=== PATIENT | female | born 1950 | race Two or more races ===

== ENCOUNTER → 2019-08-31 | Outpatient (CLI) | payer MEDICARE, BC ==
[~2019-08-31] VITALS: Ht 162.6 cm; Wt 53.5 kg
== END | disposition home or self-care (01) ==
LOC: Rad HDHVI 12:53
PROVIDERS: ATTEND Internal Medicine Cardiovascular Disease
DX: E11.9 Type 2 diabetes mellitus without complications (principal); I10 Essential (primary) hypertension; E78.5 Hyperlipidemia, unspecified; E78.00 Pure hypercholesterolemia, unspecified
CPT/HCPCS: 78452; 93017; 96374; A9500

== ENCOUNTER → 2019-09-13 | Outpatient (CLI) | payer MEDICARE, BC | END | disposition home or self-care (01) | LOC: Rad HDHVI 10:50 | PROVIDERS: ATTEND Internal Medicine Cardiovascular Disease | DX: I08.1 Rheumatic disorders of both mitral and tricuspid valves (principal); R07.9 Chest pain, unspecified; R00.2 Palpitations | CPT/HCPCS: 93306 ==

== ENCOUNTER 2020-04-03 23:36 | Inpatient (IN) | payer MEDICARE, BC ==
[~2020-04-03] VITALS: Ht 157.5 cm; Wt 57.8 kg
[2020-04-03 23:50] VITALS: BP 118/74
--- NOTE | 2020-04-03 23:50 | NUR ---
Direct Admit from [facility] MAURO DHILLON admitted to Telemetry unit after SBAR received from CLYDE Waller from [facility]. Patient oriented to STAN MAK, RN primary RN, unit, room, bed, and unit policies regarding patient care and visiting hours. Patient was placed on continuous telemetry monitoring, tele box #64 and telemetry reading is SR77 . Patient placed on bedside oxygen, weighed by bedscale and encouraged to call if they need something. All questions and concerns addressed, patient verbalized understanding.
--- NOTE | 2020-04-03 23:55 | NUR ---
Dr. Diallo Telephone orders See EMAR for orders.
[2020-04-04] MEDS ORDERED: CLOPIDOGREL BISULFATE 75 MG TAB PO ONE
[2020-04-04] MEDS ORDERED: NITROGLYCERIN 0.4 MG SL TAB SL PRN ×2 (00:45)
[2020-04-04] MEDS ORDERED: MORPHINE SULF INJ 2 MG/ML SYRINGE 1ML IV PRN (00:45)
[2020-04-04] MEDS: SODIUM CHLORIDE 0.9% 1,000 ML IV SCH ×2 (01:16→14:35)
[2020-04-04 01:33] LABS: Basophils # (auto) 0 10 ^3/uL (0-0.2); Basophils % (auto) 0.3 % (0.0-2.0); Eosinophils # (auto) 0 10 ^3/uL (0-0.8); Eosinophils % (auto) 0.3 % (0.0-7.0); Hematocrit 44.9 % (36.0-46.0); Hemoglobin 15.2 g/dL (12.2-16.2); Lymphocytes % (auto) 39.5 % (10.0-50.0); Mean Corpuscular Hemoglobin 30.1 pg (28.0-32.0); Mean Corpuscular Hgb Conc. 33.9 g/dL (32.0-36.0); Mean Corpuscular Volume 88.8 fL (80.0-100.0); Monocytes # (auto) 0.7 10 ^3/uL (0-1.3); Monocytes % (auto) 6.9 % (0.0-12.0); Neutrophils # (auto) 5.4 10 ^3/uL (1.6-8.6); Nucleated Red Blood Cells % 0.8 %; Platelet Count (auto) 245 10^3/uL (140-450); Red Blood Cells 5.06 10^6/uL (4.0-5.20); Red Cell Distribution Width 13.1 % (11.8-14.3); White Blood Cell 10.1 10^3/uL (4.4-10.8)
[2020-04-04 01:55] LABS: BUN/Creatinine Ratio 23.4; Calcium 9.5 mg/dL (8.5-10.1); Potassium 4.4 mmol/L (3.5-5.1)
[2020-04-04 01:58] LABS: Bilirubin, Total 0.7 mg/dL (0.2-1.0)
[2020-04-04 02:05] LABS: INR 1.02 (0.9-1.15); Partial Thromboplastin Time 27.9 sec (23.64-32.05)
[2020-04-04 02:28] LABS: Urine Bacteria FEW /hpf (None Seen); Urine Blood Negative /uL (Negative); Urine Specific Gravity 1.014 (1.001-1.035); Urine WBC 6 /hpf (0 - 5)
[2020-04-04] MEDS ORDERED: METF-370 PO (02:59)
[2020-04-04] MEDS ORDERED: CLOP75TA28 PO (02:59)
[2020-04-04 05:00] VITALS: BP 108/69
[2020-04-04] MEDS: SODIUM CHLOR 0.9% PF (SALINE LOCK) 10ML VIAL/SYR IV SCH ×3 (05:48→22:19)
--- NOTE | 2020-04-04 07:15 | NUR ---
CLOSING NOTE PATIENT STATUS HAS NOT CHANGE. ENDORSED CARE TO DAYSHIFT NURSE.
[2020-04-04] MEDS ORDERED: IOHEXOL 350 MG/ML 100ML IJ ONE ×2 (07:19→11:30)
[2020-04-04 09:00] VITALS: BP 104/60
--- NOTE | 2020-04-04 09:24 | NUR ---
patient taken down to calibration laboratory technician
[2020-04-04] MEDS ORDERED: CLOPIDOGREL BISULFATE 75 MG TAB PO SCH (10:00)
[2020-04-04] MEDS ORDERED: LIDOCAINE 2%HCL (LOCAL ANESTH.) INJ 20ML MDV ONE (11:30)
[2020-04-04] MEDS ORDERED: fentaNYL CITRATE 100 MCG/2 ML VL ONE (11:41)
[2020-04-04] MEDS ORDERED: MIDAZOLAM HCL 1MG/1ML-2 ML VIAL ONE (11:41)
[2020-04-04] MEDS ORDERED: HEPARIN SODIUM (PORCINE) 5000 UNITS/ML 1ML VIAL ONE (12:23)
[2020-04-04] MEDS: ASPirin 81 mg TAB PO SCH (12:30)
[2020-04-04] MEDS ORDERED: ASPirin 81 mg TAB ONE (12:32)
[2020-04-04] MEDS ORDERED: DEXTROSE (50%) 50ML SYRG IV PRN (13:00)
[2020-04-04] MEDS ORDERED: ACETAMINOPHEN 500 MG TAB PO PRN (13:15)
[2020-04-04] MEDS: HYDROcodone-ACET 5/325MG TAB PO PRN (13:38)
[2020-04-04 13:57] LABS: Basophils # (auto) 0 10 ^3/uL (0-0.2); Basophils % (auto) 0.3 % (0.0-2.0); Eosinophils # (auto) 0.1 10 ^3/uL (0-0.8); Hematocrit 41.4 % (36.0-46.0); Hemoglobin 13.9 g/dL (12.2-16.2); Lymphocytes # (auto) 2.1 10 ^3/uL (0.4-5.4); Lymphocytes % (auto) 31.2 % (10.0-50.0); Mean Corpuscular Hgb Conc. 33.6 g/dL (32.0-36.0); Mean Corpuscular Volume 89.4 fL (80.0-100.0); Monocytes # (auto) 0.5 10 ^3/uL (0-1.3); Monocytes % (auto) 7.3 % (0.0-12.0); Neutrophils % (auto) 60.2 % (37.0-80.0); Nucleated Red Blood Cells % 0.1 %; Platelet Count (auto) 190 10^3/uL (140-450); Red Blood Cells 4.62 10^6/uL (4.0-5.20); White Blood Cell 6.6 10^3/uL (4.4-10.8)
--- NOTE | 2020-04-04 14:20 | NUR ---
RESP UNABLE TO PERFORM BED SIDE SPIROMETRY DUE TO PT NOT BEING AWAKE ENOUGH TO FOLLOW INSTRUCTIONS FOR TEST.
[2020-04-04 14:29] LABS: INR 1.13 (0.9-1.15)
--- NOTE | 2020-04-04 14:33 | NUR ---
paged dr hawkins for clarification on heparin drip, art wants to know if he wants them to use the heparin protocol here. Also need to know if dr hawkins is ok with bedside spirometry instead of PFT.
--- NOTE | 2020-04-04 14:35 | NUR ---
called pharmacy for heparin drip, they will send.
[2020-04-04 14:39] LABS: Partial Thromboplastin Time 106.5 sec (23.64-32.05)
--- NOTE | 2020-04-04 14:50 | NUR ---
received PTT critical on patient, awaiting dr to call back before initiating Heparin.
--- NOTE | 2020-04-04 14:58 | NUR ---
per shruthi titrate per heparin protocol
--- NOTE | 2020-04-04 15:00 | NUR ---
per pharmacy ok to start heparin drip a 8ml/hr
--- NOTE | 2020-04-04 15:13 | NUR ---
PER PHARMACY RE-DRAW PTT STAT NOW AND THEN START HEPARIN DRIP AT 8ML/HR
[2020-04-04] MEDS: PANTOPRAZOLE 40 MG/10 ML VIAL INJ IV SCH (15:16)
[2020-04-04] MEDS: HEPARIN DRIP/D5W 100UNITS/ML 250 ML IV SCH (15:51)
[2020-04-04 15:59] LABS: INR 1.07 (0.9-1.15); Partial Thromboplastin Time 40.6 sec (23.64-32.05)
[2020-04-04] MEDS: InsuLIN REG 1unit/0.01ml Soln (100units/ml) SC SCH ×2 (16:49→22:00)
[2020-04-04] MEDS: ACCU-CHEK COMFORT CURVE STRIP VI SCH ×2 (16:50→22:19)
[2020-04-04 17:00] VITALS: BP 130/70
--- NOTE | 2020-04-04 18:12 | NUR ---
Patient sat up in bed, the Cath site in Right groin has gauze that is minimally saturated. I told patient that she should not attempt to walk quite yet because she is on the heparin drip and the groin site took a while to clot. Patient was put on a bed owen to attempt to urinate.
--- NOTE | 2020-04-04 19:08 | NUR ---
Patient complaining of pain. Patient requesting to transfer to [facility]. Patient medicated for pain. Will continue to monitor.
[2020-04-04] MEDS: MORPHINE SULF INJ 2 MG/ML SYRINGE 1ML IV PRN (19:10)
--- NOTE | 2020-04-04 20:00 | NUR ---
Patient's called requesting information. No password on the account. Family wanting to know how can the patient transfer to [facility]. I explained the physician needs to request the transfer so that another physician can accept the case. I also explained if the patient leaves AMA there is a risk to leaving the hospital against medical advice. I informed the that the cardiothoracic surgeon has been consulted and she has yet to be seen. verbalized understanding. Will continue to monitor.
--- NOTE | 2020-04-04 20:12 | NUR ---
Spoke to the patient to reiterate that she is under a physicians care and currently receiving Heparin post heart cath. She then paused our discussion and called her sister. They added the password "Nurse" to the account. Explained to the family that the physician has placed a consult for the cardiothoracic surgeon and she has yet to be seen. I explained the risk of leaving AMA, and that she should remain and make her wishes known to the physician. Paged the physician for medication for anxiety, and acid reflux. Awaiting orders.
[2020-04-04] MEDS ORDERED: ALPRAZolam 0.25 MG TAB PO PRN (21:15)
[2020-04-04 22:00] VITALS: BP 131/82
[2020-04-04 22:23] LABS: Basophils # (auto) 0 10 ^3/uL (0-0.2); Basophils % (auto) 0.2 % (0.0-2.0); Eosinophils # (auto) 0 10 ^3/uL (0-0.8); Eosinophils % (auto) 0.3 % (0.0-7.0); Hematocrit 41.2 % (36.0-46.0); Hemoglobin 14.1 g/dL (12.2-16.2); Lymphocytes # (auto) 1.6 10 ^3/uL (0.4-5.4); Lymphocytes % (auto) 18.4 % (10.0-50.0); Mean Corpuscular Hemoglobin 30.5 pg (28.0-32.0); Mean Corpuscular Hgb Conc. 34.2 g/dL (32.0-36.0); Monocytes # (auto) 0.6 10 ^3/uL (0-1.3); Monocytes % (auto) 6.8 % (0.0-12.0); Neutrophils # (auto) 6.3 10 ^3/uL (1.6-8.6); Neutrophils % (auto) 74.3 % (37.0-80.0); Platelet Count (auto) 199 10^3/uL (140-450); Red Blood Cells 4.63 10^6/uL (4.0-5.20); Red Cell Distribution Width 13.1 % (11.8-14.3); White Blood Cell 8.5 10^3/uL (4.4-10.8)
[2020-04-04] MEDS: ALUM & MAG HYDROX-SIMETH LIQ(MAALOX) 30 ML PO PRN ×2 (22:26→22:33)
[2020-04-04 22:56] LABS: INR 1.08 (0.9-1.15); Partial Thromboplastin Time 40.9 sec (23.64-32.05)
--- NOTE | 2020-04-04 23:15 | NUR ---
Patient aPTT 40.9, Heparin increased by 2 mL/hr rate now 10 mL/hr. Next draw will be at 0515. Will continue to monitor.
[2020-04-05] MEDS: MORPHINE SULF INJ 2 MG/ML SYRINGE 1ML IV PRN ×2 (00:28→03:25)
--- NOTE | 2020-04-05 00:35 | NUR ---
Patient complained of CP 7/10, non-radiating. EKG performed, patient placed on 1L NC, and morphine provided. Patient currently resting in bed with eyes closed free of distress. Will continue to monitor.
[2020-04-05] MEDS: SODIUM CHLORIDE 0.9% 1,000 ML IV SCH ×3 (02:55→21:28)
--- NOTE | 2020-04-05 04:53 | NUR ---
PATIENT UP TO BATHROOM, PATIENT EXCLAIMED SHE HEARD A POP IN HER RIGHT GROIN. PATIENT HAS A SMALL HEMATOMA WITH A SMALL TRICKLE BLEED. PRESSURE APPLIED TO SITE TO STOP BLEEDING. PAGING DR. GUARDADO. AWAITING ORDERS.
[2020-04-05 05:00] VITALS: BP 141/90
--- NOTE | 2020-04-05 05:22 | NUR ---
PAGED DR. GUARDADO AGAIN REQUESTING TO DISCONTINUE HEPARIN DRIP. AWAITING ORDERS.
[2020-04-05] MEDS: SODIUM CHLOR 0.9% PF (SALINE LOCK) 10ML VIAL/SYR IV SCH ×4 (06:06→23:48)
[2020-04-05] MEDS: ALUM & MAG HYDROX-SIMETH LIQ(MAALOX) 30 ML PO PRN ×2 (06:06→17:31)
[2020-04-05 06:13] LABS: Basophils # (auto) 0 10 ^3/uL (0-0.2); Basophils % (auto) 0.2 % (0.0-2.0); Eosinophils # (auto) 0 10 ^3/uL (0-0.8); Eosinophils % (auto) 0.1 % (0.0-7.0); Hematocrit 41.9 % (36.0-46.0); Lymphocytes # (auto) 3.3 10 ^3/uL (0.4-5.4); Lymphocytes % (auto) 30.6 % (10.0-50.0); Mean Corpuscular Hemoglobin 30.1 pg (28.0-32.0); Mean Corpuscular Hgb Conc. 33.4 g/dL (32.0-36.0); Mean Corpuscular Volume 90.1 fL (80.0-100.0); Monocytes # (auto) 0.8 10 ^3/uL (0-1.3); Monocytes % (auto) 7.3 % (0.0-12.0); Neutrophils # (auto) 6.6 10 ^3/uL (1.6-8.6); Neutrophils % (auto) 61.8 % (37.0-80.0); Nucleated Red Blood Cells % 0.1 %; Platelet Count (auto) 203 10^3/uL (140-450); Red Blood Cells 4.65 10^6/uL (4.0-5.20); Red Cell Distribution Width 12.7 % (11.8-14.3); White Blood Cell 10.7 10^3/uL (4.4-10.8)
--- NOTE | 2020-04-05 06:38 | NUR ---
REPAGED DR. GUARDADO AWAITING ORDERS.
[2020-04-05 06:40] LABS: Calcium 8.4 mg/dL (8.5-10.1); Potassium 3.4 mmol/L (3.5-5.1)
[2020-04-05 06:42] LABS: BUN/Creatinine Ratio 14.5
--- NOTE | 2020-04-05 06:47 | NUR ---
MULTIPLE ATTEMPTS TO PAGE PRIMARY PHYSICIAN, PAGES UNANSWERED PAGING HOSPITALIST FOR ORDERS.
[2020-04-05] MEDS: ACCU-CHEK COMFORT CURVE STRIP VI SCH ×4 (06:58→21:27)
[2020-04-05] MEDS: InsuLIN REG 1unit/0.01ml Soln (100units/ml) SC SCH ×4 (07:00→21:40)
--- NOTE | 2020-04-05 07:00 | NUR ---
Opening Shift Note Received report on the patient. Awake lying in bed. Patient shows no signs of distress at this time. Discussed the plan of care with the patient. Bed in lowest position, side rails up x2, and the call light is within reach.
--- NOTE | 2020-04-05 07:47 | NUR ---
Endorsed care to Brittany TANG, examined Right groin. Right groin no longer bleeding. Awaiting orders.
--- NOTE | 2020-04-05 08:16 | NUR ---
Paged Dr Diallo regarding bleeding at the right groin. Awaiting a call back.
--- NOTE | 2020-04-05 08:54 | NUR ---
0714 04/05/20 - Contacted by Dr Fernández's nurse Estela, who request clinicals and face sheet on patient. Estela stated if bed becomes available today, she will transfer patient to [place]. I faxed to Estela at [phone] requested documents.
[2020-04-05 09:00] VITALS: BP 138/78
[2020-04-05] MEDS: ASPirin 81 mg TAB PO SCH (09:47)
[2020-04-05] MEDS: PANTOPRAZOLE 40 MG/10 ML VIAL INJ IV SCH (09:47)
[2020-04-05] MEDS: AMIODARONE HCL 200 MG TAB PO SCH (09:48)
[2020-04-05] MEDS: NITROGLYCERIN 0.2MG/HR TOPICAL PATCH TD SCH (09:48)
--- NOTE | 2020-04-05 09:51 | NUR ---
Reassessed temp. Now 99.5
--- NOTE | 2020-04-05 09:51 | NUR ---
Spoke to Dr Diallo. New orders received.
--- NOTE | 2020-04-05 09:52 | NUR ---
Called pharmacy and let them know the heparin has been stopped.
[2020-04-05 11:30] LABS: INR 1.04 (0.9-1.15); Partial Thromboplastin Time 25.6 sec (23.64-32.05)
[2020-04-05] MEDS: HEPARIN DRIP/D5W 100UNITS/ML 250 ML IV SCH (12:52)
[2020-04-05 13:00] VITALS: BP 107/59
--- NOTE | 2020-04-05 15:47 | NUR ---
1547 04/05/20 - Contacted by [facility] transfer center, patient has been accepted and assigned bed 222-A main tele unit, nurse's station [phone]. Address is [address] [place], [place] [id number]. Please send CD angiogram with patient. Will place patient on [facility] will call.
--- NOTE | 2020-04-05 15:55 | NUR ---
1555 04/05/20 - Attending receiving patient is Dr Sara Zayas
--- NOTE | 2020-04-05 15:59 | NUR ---
Received a call that the patient is being transferred to [place] for cardiothoracic with Dr. Fernández. Paged Dr. Diallo for discharge orders and to advise if the patient and her family have been notified.
--- NOTE | 2020-04-05 16:13 | NUR ---
Dr Diallo called and spoke to the patient about the transfer. Patient states that is not sure if she wants to be transferred to [place] and may want to go to [facility] instead. Dr Diallo informed the patient that it would take a week to be transferred to [facility]. Patient is going to call her family and let me know her decision.
--- NOTE | 2020-04-05 16:17 | NUR ---
Tried to call Jose and put [facility] on will call, but there was no answer and voicemail is full. Addendum: 04/05/20 at 1620 by DANYELL RODRIGUEZ RN RN Mariangel veras
[2020-04-05 17:00] VITALS: BP 123/78
--- NOTE | 2020-04-05 17:05 | NUR ---
[facility] called needed the medicare form and the correct Medicare #. Put transport on will call because the patient is not decided on location.
--- NOTE | 2020-04-05 17:07 | NUR ---
Patient stated she wants to go to [facility]. Dr iDallo informed.
--- NOTE | 2020-04-05 17:39 | NUR ---
Received a call from [facility] transfer [facility]. The accepting physician is Dr. Avel Domínguez. Transfer center phone number is . Fax # is . Faxed over the face sheet, H&P, and the last progress note. Rep said she will work on the transfer on Wednesday.
--- NOTE | 2020-04-05 19:15 | NUR ---
Endorsed care to Yamile. Patient shows no signs of distress at this time.
--- NOTE | 2020-04-05 19:30 | NUR ---
Opening Shift Note Assumed care of patient, awake and alert/oriented x4. No S/S of distress/SOB or pain. Bed in lowest locked position, safety precautions in place, call light within reach. Instructed on POC and to call for assist PRN, will continue to monitor for changes Q1hr and PRN.
[2020-04-05 22:00] VITALS: BP 104/62
[2020-04-06] MEDS: InsuLIN REG 1unit/0.01ml Soln (100units/ml) SC SCH ×4 (06:06→22:02)
[2020-04-06] MEDS: ACCU-CHEK COMFORT CURVE STRIP VI SCH ×4 (06:06→21:56)
[2020-04-06] MEDS: ALUM & MAG HYDROX-SIMETH LIQ(MAALOX) 30 ML PO PRN ×2 (07:14→20:39)
--- NOTE | 2020-04-06 07:19 | NUR ---
END OF SHIFT PT. RESTING IN BED. NO S/S DISTRESS AT THIS TIME. PT. REPORTS HEARTBURN. MILK AND MAYLOX GIVEN PRIOR TO LEAVING. PT. STATES SHE IS FEELING COMFORTABLE. CARE ENDORSED TO DAY RN.
--- NOTE | 2020-04-06 07:30 | NUR ---
RECEIVED REPORT FROM NIGHT NURSE. PATIENT RESTING IN BED, STATES THAT SHE FEELS LIKE SHE HAS INDIGESTION/ HEART BURN. WILL CONTINUE TO MONITOR.
[2020-04-06] MEDS: MORPHINE SULF INJ 2 MG/ML SYRINGE 1ML IV PRN (08:10)
--- NOTE | 2020-04-06 08:10 | NUR ---
CHEST PAIN/ ABD PAIN PATIENT STETS THAT SHE IS HAVING CHEST PAIN, LOWER RIGHT ABDOMINAL PAIN. PATIENT STATES THAT MORPHINE HELPS AND THAT THE MAALOX DID NOT HELP MUCH. MORPHINE GIVEN. WILL CONTINUE TO MONITOR.
[2020-04-06 09:00] VITALS: BP 133/79
[2020-04-06] MEDS: PANTOPRAZOLE 40 MG/10 ML VIAL INJ IV SCH (09:37)
[2020-04-06] MEDS: AMIODARONE HCL 200 MG TAB PO SCH (09:38)
[2020-04-06] MEDS: ASPirin 81 mg TAB PO SCH (09:38)
[2020-04-06] MEDS: NITROGLYCERIN 0.2MG/HR TOPICAL PATCH TD SCH (09:38)
--- NOTE | 2020-04-06 09:39 | NUR ---
CHEST PAIN/ ABD PAIN EKG TAKEN. VITALS STABLE BP 129/89, HR 93, O2 100% ON 2 L, RR 18. NITRO SUBLINGUAL GIVEN, SCHEDULED MORNING MEDICATIONS GIVEN. WILL CONTINUE TO MONITOR.
--- NOTE | 2020-04-06 10:10 | NUR ---
CHEST PAIN/ ABD PAIN PATIENT STATES SHE IS FEELING MUCH BETTER AND WANTS TO WALK AROUND FOR A WHILE. WILL CONTINUE TO MONITOR.
[2020-04-06] MEDS: HEPARIN DRIP/D5W 100UNITS/ML 250 ML IV SCH (12:52)
[2020-04-06 13:00] VITALS: BP 119/68
[2020-04-06] MEDS: HYDROcodone-ACET 5/325MG TAB PO PRN ×2 (15:38→20:40)
[2020-04-06] MEDS: SODIUM CHLOR 0.9% PF (SALINE LOCK) 10ML VIAL/SYR IV SCH ×2 (15:38→21:56)
[2020-04-06 17:10] VITALS: BP 117/77
[2020-04-06] MEDS: SODIUM CHLORIDE 0.9% 1,000 ML IV SCH (17:45)
--- NOTE | 2020-04-06 19:20 | NUR ---
Opening Shift Note Assumed care of patient. Patient is awake, alert, and oriented X 4. No S/S of respiratory distress noted or reported. Patient reports RL abd and upper back pain 6 out 0f 10. Pain will be addressed per dr's order. 2 LPM NC. Patient safety measures in place bed in lowest position, brakes are locked, side rails up x 2, and call light within reach. Patent instructed on POC and to call for assistance as needed. Will continue to monitor for changes Q1hr and PRN.
[2020-04-06 20:00] VITALS: BP 119/74
--- NOTE | 2020-04-06 20:36 | NUR ---
Pain Patient complaints on right middle abdominal pain and pain just below her right shoulder blade. Pain medication given and and hot packs offered. Will continue to monitor.
--- NOTE | 2020-04-06 21:00 | NUR ---
Received a call from [facility]. The publications sales representative Minip checked on Pt's status and confirmed that a bed will be possibly available on Wednesday.
[2020-04-06 22:00] VITALS: BP 119/74
[2020-04-07 05:00] VITALS: BP 115/78
[2020-04-07] MEDS: SODIUM CHLOR 0.9% PF (SALINE LOCK) 10ML VIAL/SYR IV SCH ×3 (05:40→22:54)
[2020-04-07] MEDS: ACCU-CHEK COMFORT CURVE STRIP VI SCH ×4 (06:26→21:50)
[2020-04-07] MEDS: InsuLIN REG 1unit/0.01ml Soln (100units/ml) SC SCH ×4 (06:30→21:55)
[2020-04-07] MEDS: ONDANSETRON HCL 4 MG/2 ML VIAL IV PRN ×2 (06:57→23:31)
--- NOTE | 2020-04-07 07:30 | NUR ---
RECEIVED REPORT FROM NIGHT NURSE. PATIENT RESTING IN BED, NO DISTRESS NOTED. WILL CONTINUE TO MONITOR.
[2020-04-07] MEDS: SODIUM CHLORIDE 0.9% 1,000 ML IV SCH ×2 (08:25→21:33)
[2020-04-07] MEDS: HYDROcodone-ACET 5/325MG TAB PO PRN ×3 (08:25→22:07)
[2020-04-07 09:00] VITALS: BP_SYST 115; BP_SYST 125; BP_DIAS 74; BP_DIAS 84
[2020-04-07] MEDS: PANTOPRAZOLE 40 MG/10 ML VIAL INJ IV SCH (09:40)
[2020-04-07] MEDS: NITROGLYCERIN 0.2MG/HR TOPICAL PATCH TD SCH (09:40)
[2020-04-07] MEDS: AMIODARONE HCL 200 MG TAB PO SCH (09:41)
[2020-04-07] MEDS: ASPirin 81 mg TAB PO SCH (09:41)
[2020-04-07] MEDS: HEPARIN DRIP/D5W 100UNITS/ML 250 ML IV SCH (11:46)
[2020-04-07 13:00] VITALS: BP 95/59
--- NOTE | 2020-04-07 14:59 | NUR ---
Nutrition Assessment Notes please see attached link for complete assessment [employer] needs BW 56 [id number] kcals (25-30 kcal/kgBW), Est Protein needs: 56-67 gms/day (1.0-1.2 gm/kgBW). Will continue to monitor and reassess prn. Addendum: 04/07/20 at [address] Amended: Links added.
[2020-04-07 17:00] VITALS: BP 96/63
--- NOTE | 2020-04-07 19:13 | NUR ---
Opening Shift Note Assumed care of patient. Patient is awake, alert, and oriented X 4. No S/S of respiratory distress, no pain noted or reported. 2 LPM NC. Patient safety measures in place bed in lowest position, brakes are locked, side rails up x 2, and call light within reach. Patent instructed on POC and to call for assistance as needed. Will continue to monitor for changes Q1hr and PRN.
[2020-04-07 20:00] VITALS: BP 96/63
[2020-04-07 22:00] VITALS: BP 96/63
[2020-04-07] MEDS: ALUM & MAG HYDROX-SIMETH LIQ(MAALOX) 30 ML PO PRN (22:07)
[2020-04-07] MEDS: MORPHINE SULF INJ 2 MG/ML SYRINGE 1ML IV PRN (23:31)
[2020-04-08] MEDS: CALCIUM CARB 500 MG CHEW TAB PO PRN ×3 (02:11→20:11)
[2020-04-08 05:11] VITALS: BP 91/62
[2020-04-08] MEDS: ALUM & MAG HYDROX-SIMETH LIQ(MAALOX) 30 ML PO PRN (05:27)
[2020-04-08] MEDS: SODIUM CHLOR 0.9% PF (SALINE LOCK) 10ML VIAL/SYR IV SCH ×3 (05:32→22:27)
[2020-04-08] MEDS: ONDANSETRON HCL 4 MG/2 ML VIAL IV PRN ×3 (06:23→18:55)
[2020-04-08] MEDS: HYDROcodone-ACET 5/325MG TAB PO PRN ×2 (06:24→10:43)
[2020-04-08] MEDS: ACCU-CHEK COMFORT CURVE STRIP VI SCH ×4 (06:24→22:28)
[2020-04-08] MEDS: InsuLIN REG 1unit/0.01ml Soln (100units/ml) SC SCH ×4 (06:26→22:32)
--- NOTE | 2020-04-08 07:25 | NUR ---
Endorsed care to day shift RN. Patient shows no signs of distress at this time.
--- NOTE | 2020-04-08 07:30 | NUR ---
RECEIVED REPORT FROM NIGHT NURSE. PATIENT RESTING IN BED, NO DISTRESS NOTED. WILL CONTINUE TO MONITOR.
[2020-04-08 09:00] VITALS: BP 90/58
[2020-04-08] MEDS: PANTOPRAZOLE 40 MG/10 ML VIAL INJ IV SCH (09:02)
[2020-04-08] MEDS: ASPirin 81 mg TAB PO SCH (09:03)
[2020-04-08] MEDS: AMIODARONE HCL 200 MG TAB PO SCH (09:03)
--- NOTE | 2020-04-08 09:07 | NUR ---
CHEST PAIN/ INDIGESTION PATIENT COMPLAINING OF INDIGESTION AFTER EATING BREAKFAST, REQUESTING A TUMS. WILL CONTINUE TO MONITOR.
[2020-04-08] MEDS: NITROGLYCERIN 0.2MG/HR TOPICAL PATCH TD SCH (10:00)
[2020-04-08] MEDS: SODIUM CHLORIDE 0.9% 1,000 ML IV SCH ×2 (11:28→23:48)
--- NOTE | 2020-04-08 11:50 | NUR ---
1150 04/08/20 - Contacted [facility] at [phone], Spoke with coordinator who stated patient was financially cleared this morning. Requesting COVID 19 results, pending bed assignment.
--- NOTE | 2020-04-08 11:55 | NUR ---
SPOKE WITH PLASTIC PRESS OPERATOR, NEED COVID TEST BEFORE CLEARED FOR TRANSFER.
--- NOTE | 2020-04-08 12:09 | NUR ---
COVID SWAB COLLECTED AND TAKEN TO LAB.
[2020-04-08 13:00] VITALS: BP 92/62
[2020-04-08 17:00] VITALS: BP 95/62
--- NOTE | 2020-04-08 18:08 | NUR ---
PATIENT MOVED TO ROOM 293A, ALL BELONGINGS WITH PATIENT.
--- NOTE | 2020-04-08 19:26 | NUR ---
Opening Shift Note Received report and assumed care of patient. Patient is awake and alert. No signs or symptoms of distress noted. Instructed patient on plan of care and to call for assistance as needed. Will continue to monitor.
[2020-04-08 23:41] VITALS: BP 99/69
[2020-04-09] MEDS ORDERED: FUROSEMIDE 20 MG/2 ML VIAL IV ONE (03:00)
[2020-04-09] MEDS ORDERED: POTASSIUM CHL 20 Meq TABLET PO ONE (03:00)
[2020-04-09] MEDS ORDERED: POTASSIUM EFFERVESENT TAB 25 MEQ PO ONE (03:00)
[2020-04-09 05:27] VITALS: BP 95/60
[2020-04-09] MEDS: SODIUM CHLOR 0.9% PF (SALINE LOCK) 10ML VIAL/SYR IV SCH ×3 (06:29→22:24)
[2020-04-09] MEDS: ACCU-CHEK COMFORT CURVE STRIP VI SCH ×4 (06:38→22:17)
[2020-04-09] MEDS: InsuLIN REG 1unit/0.01ml Soln (100units/ml) SC SCH ×4 (06:41→22:23)
[2020-04-09 06:56] LABS: Basophils # (auto) 0 10 ^3/uL (0-0.2); Basophils % (auto) 0.1 % (0.0-2.0); Eosinophils # (auto) 0 10 ^3/uL (0-0.8); Hematocrit 34.3 % (36.0-46.0); Hemoglobin 11.9 g/dL (12.2-16.2); Lymphocytes # (auto) 0.9 10 ^3/uL (0.4-5.4); Lymphocytes % (auto) 8.8 % (10.0-50.0); Mean Corpuscular Hemoglobin 30.9 pg (28.0-32.0); Mean Corpuscular Hgb Conc. 34.6 g/dL (32.0-36.0); Mean Corpuscular Volume 89.2 fL (80.0-100.0); Monocytes # (auto) 0.7 10 ^3/uL (0-1.3); Monocytes % (auto) 6.5 % (0.0-12.0); Neutrophils # (auto) 8.8 10 ^3/uL (1.6-8.6); Neutrophils % (auto) 84.6 % (37.0-80.0); Platelet Count (auto) 235 10^3/uL (140-450); Red Blood Cells 3.84 10^6/uL (4.0-5.20); Red Cell Distribution Width 13.1 % (11.8-14.3); White Blood Cell 10.4 10^3/uL (4.4-10.8)
[2020-04-09 07:12] LABS: Albumin 2.8 g/dL (3.4-5.0); BUN/Creatinine Ratio 31.3; Calcium 8.6 mg/dL (8.5-10.1); Potassium 4.2 mmol/L (3.5-5.1)
[2020-04-09 07:15] LABS: Bilirubin, Total 1.1 mg/dL (0.2-1.0); Total Protein 6.8 g/dL (6.4-8.2)
[2020-04-09 09:00] VITALS: BP 86/58
[2020-04-09] MEDS: ASPirin 81 mg TAB PO SCH (09:55)
[2020-04-09] MEDS: AMIODARONE HCL 200 MG TAB PO SCH (09:55)
[2020-04-09] MEDS: PANTOPRAZOLE 40 MG/10 ML VIAL INJ IV SCH (09:55)
[2020-04-09] MEDS: NITROGLYCERIN 0.2MG/HR TOPICAL PATCH TD SCH (09:56)
[2020-04-09] MEDS: ONDANSETRON HCL 4 MG/2 ML VIAL IV PRN (12:21)
[2020-04-09 12:39] VITALS: BP 91/55
[2020-04-09] MEDS: SODIUM CHLORIDE 0.9% 1,000 ML IV SCH (13:59)
--- NOTE | 2020-04-09 14:20 | NUR ---
DOCTOR DEBBY AT BEDSIDE DISCUSSING POC PATIENT VERBALIZED UNDERSTANDING AND AGREES WITH POC.
[2020-04-09] MEDS ORDERED: SODIUM CHL 3% 250 ML IV ONE (14:30)
--- NOTE | 2020-04-09 14:34 | NUR ---
DOCTOR DEBBY INFORMED OF PATIENTS SODIUM OF 129 NEW ORDERS RECEIVED SEE EMR FOR ORDERS.
--- NOTE | 2020-04-09 16:24 | NUR ---
1530 04/09/20- Faxed to [facility] at [phone], face sheet, H/P, labs, progress notes, patient has been accepted and assign bed 237-B. Please call report to [phone]. Please send CD with patient.
[2020-04-09 16:59] VITALS: BP 85/60
--- NOTE | 2020-04-09 18:00 | NUR ---
Received call back from josé miguel therapeutic case manager per josé miguel NEWMAN will be transporting patient. per josé miguel NEWMAN will call back with spanish moss picker time.
--- NOTE | 2020-04-09 18:00 | NUR ---
Report give to Kenisha mcgraw.
[2020-04-09] MEDS ORDERED: ENOXAPARIN SOD 60 MG/0.6 ML SYRINGE SC ONE (18:15)
--- NOTE | 2020-04-09 18:21 | NUR ---
patient Jose L informed of patients transfer to [facility].
--- NOTE | 2020-04-09 19:40 | NUR ---
Opening Shift Note Assumed care of patient, awake, AAOx4. No S/S of distress/SOB or pain. On room air, ambulatory to BSC. Bed in lowest locked position, side rails up x2, call light within reach. Patient awaiting transfer to [facility]. Instructed on POC and to call for assist PRN, will continue to monitor for changes Q1hr and PRN.
--- NOTE | 2020-04-09 19:43 | NUR ---
RECEIVED ORDERS TO GIVE LOVENOX 60MG X1 CALLED DOCTOR GUARDADO TO INFORM MD THAT PATIENT IS VERY BRUISE ON GROIN AND ASKED MD IF HE STILL WANTED PATIENT TO RECEIVED LOVENOX. PER DOCTOR DEBBY PATENT NEEDS LOVENOX BEFORE TRANSPORT TO [facility].
[2020-04-09 20:00] VITALS: BP_SYST 109; BP_SYST 99; BP_DIAS 64; BP_DIAS 73
--- NOTE | 2020-04-09 20:00 | NUR ---
RECEIVED CALL FROM [facility] TO FAX COMPLETED DOCUMENTS FOR TRANSFER. NEEDED COMPLETED SIGNATURE FROM . OBTAINED SIGNATURE FROM [employer]IYAD MEDINA. DR GUARDADO NOTIFIED AND GAVE TELEPHONE ORDER FOR VERIFICATION TO TRANSFER PATIENT WITH [facility] TO [facility]. FAXED COMPLETED DOCUMENTS TO [facility]. RECEIVED CALL BACK WITH AIRFRAME AND POWERPLANT TECHNICIAN TIME OF 0100. PATIENT NOTIFIED AND AWAITING TRANSFER.
[2020-04-09 22:00] VITALS: BP 99/64
--- NOTE | 2020-04-10 02:44 | NUR ---
PATIENT TRANSFERRED WITH [facility], BACK TACKER AND 2L OXYGEN VIA NASAL CANNULA. NO S/S OF DISTRESS, SOB OR PAIN NOTED. ALL BELONGINGS TRANSFERRED WITH PATIENT. ALL DOCUMENTS COMPLETED AND SIGNED. IV REMOVED, CATHETER INTACT, PATIENT TOLERATED WELL. RESTAURANT WORKER REMOVED AND SENT BACK TO [facility].
== END 2020-04-10 02:44 | disposition short-term general hospital (02) | DRG 287 ==
LOC: TELE-WESTW 23:36
PROVIDERS: ADMIT Internal Medicine Cardiovascular Disease; ATTEND Internal Medicine Cardiovascular Disease
PROC: B2111ZZ Fluoroscopy of Multiple Coronary Arteries using Low Osmolar Contrast (ICD-10-PCS; principal; 2020-04-04)
PROC: B2151ZZ Fluoroscopy of Left Heart using Low Osmolar Contrast (ICD-10-PCS; 2020-04-04)
PROC: 4A023N7 Measurement of Cardiac Sampling and Pressure, Left Heart, Percutaneous Approach (ICD-10-PCS; 2020-04-04)
PROC: B3151ZZ Fluoroscopy of Bilateral Common Carotid Arteries using Low Osmolar Contrast (ICD-10-PCS; 2020-04-04)
PROC: B3121ZZ Fluoroscopy of Left Subclavian Artery using Low Osmolar Contrast (ICD-10-PCS; 2020-04-04)
PROC: B3181ZZ Fluoroscopy of Bilateral Internal Carotid Arteries using Low Osmolar Contrast (ICD-10-PCS; 2020-04-04)
PROC: B31C1ZZ Fluoroscopy of Bilateral External Carotid Arteries using Low Osmolar Contrast (ICD-10-PCS; 2020-04-04)
DX: I25.110 Atherosclerotic heart disease of native coronary artery with unstable angina pectoris (principal); E11.9 Type 2 diabetes mellitus without complications; I10 Essential (primary) hypertension; E78.5 Hyperlipidemia, unspecified; K21.9 Gastro-esophageal reflux disease without esophagitis; Z79.84 Long term (current) use of oral hypoglycemic drugs; Z03.818 Encounter for observation for suspected exposure to other biological agents ruled out
CPT/HCPCS: 36224; 36227; 36415; 71045; 80048; 80053; 81001; 82962; 85025; 85610; 85730; 86850; 86900; 86901; 93005; 93458; 93970; 99152; C9113; G0378; J1815; J2250; J2405